=== PATIENT | female | born 1960 | race Two or more races ===

== ENCOUNTER → 2025-05-04 | Outpatient (CLI) | payer MEDICAID, SELFPAY ==
--- NOTE | 2025-05-04 10:45 | XR_ITS ---
Examination: Arterial duplex lower extremity unilateral left Date and time of exam: May 04, 1100 hours INDICATIONS: Discoloration in the lower leg several months Findings: Duplex sonographic imaging of the lower extremity arteries using B-mode/Limon scale imaging and Doppler spectral analysis and color flow. Ankle brachial indices have been recorded. . Left common femoral artery demonstrates triphasic flow. Left superficial femoral artery demonstrates triphasic flow. Left popliteal artery demonstrates triphasic flow. Left posterior tibial artery demonstrated triphasic flow. Left ankle/brachial index is 1.1. Impression: Negative study
== END | disposition home or self-care (01) ==
LOC: CDIM 10:36
PROVIDERS: PCP Physician Assistant; Referring Provider Nurse Practitioner Family; Visit Provider Nurse Practitioner Family
DX: M79.89 Other specified soft tissue disorders (principal); L81.9 Disorder of pigmentation, unspecified
CPT/HCPCS: 93926